=== PATIENT | male | born 1985 | race Caucasian/White ===

== ENCOUNTER 2018-08-11 10:23 | Emergency (ER) | payer OTHER ==
[2018-08-11 10:44] VITALS: BP 131/94
--- NOTE | 2018-08-11 11:12 | UC ---
Shoulder Pain HPI - HPI Summary HPI Summary: HURT R SHOULDER 2 WEEKS AGO WITH A SIDE ARM THROW WITH HIS DOGS BALL. WORSE SINCE LIFTING. - History of Current Complaint Chief Complaint: UCUpperExtremity Stated Complaint: RIGHT SHOULDER PAIN Time Seen by Provider: 08/11/18 10:54 Hx Obtained From: Patient Onset/Duration: Gradual Onset Timing: Constant Pain Intensity: 2 Aggravating Factor(s): Abduction Associated Signs And Symptoms: Negative: Swelling, Numbness/Tingling - Allergies/Home Medications Allergies/Adverse Reactions: Allergies Allergy/AdvReac Type Severity Reaction Status Date / Time No Known Allergies Allergy Verified 08/11/18 10:39 Home Medications: Home Medications Acetaminophen [Acetaminophen Extra Strength] 2,000 mg PO ONCE 08/11/18 [History Confirmed 08/11/18] Naltrexone INJ [Vivitrol INJ] 380 mg IM MONTHLY 08/11/18 [History Confirmed ] PMH/Surg Hx/FS Hx/Imm Hx - Additional Past Medical History Additional PMH: ADDICTION-IN RECOVERY - Surgical History Surgical History: None - Family History Known Family History: Positive: None - Social History Occupation: Employed Full-time Lives: With Family Alcohol Use: None Substance Use Type: None Smoking Status (MU): Heavy Every Day Tobacco Smoker Type: Cigarettes Amount Used/How Often: 1 PPD Length of Time of Smoking/Using Tobacco: Since Age 16 - Immunization History Vaccination Up to Date: Yes Review of Systems Constitutional: Negative Skin: Negative Eyes: Negative ENT: Negative Respiratory: Negative Cardiovascular: Negative Gastrointestinal: Negative Genitourinary: Negative Motor: Negative Neurovascular: Negative Musculoskeletal: Other: - R SHOULDER PAIN Neurological: Negative Psychological: Negative Is Patient Immunocompromised?: No All Other Systems Reviewed And Are Negative: Yes Physical Exam Triage Information Reviewed: Yes Appearance: Well-Appearing Vital Signs: Initial Vital Signs Temp 98.4 F 08/11/18 10:37 Pulse 92 08/11/18 10:37 Resp 19 08/11/18 10:37 BP 131/94 08/11/18 10:37 Pulse Ox 100 08/11/18 10:37 Vital Signs Reviewed: Yes Eyes: Positive: Conjunctiva Clear ENT: Positive: Normal ENT inspection Neck: Positive: Supple, Nontender, No Lymphadenopathy Respiratory Exam: Normal Respiratory: Positive: Lungs clear, Normal breath sounds Cardiovascular: Positive: RRR, No Murmur Abdomen Description: Positive: Nontender, No Organomegaly, Soft Bowel Sounds: Positive: Present Musculoskeletal: Positive: Other: - RUE: NO GROSS DEFORMITY, SWELLING OR DISCOLORATION. NO BONY DEFORMITY OR TENDERNESS BUT TENDER OVER ANTERIOR SHOULDER JOINT. PASSIVE ROM INTACT AND ACTIVE INTACT BUT BOTH WORSEN ANTERIOR SHOULDER PAIN. NEGATIVE ANTERIOR STRESS BUT + DROP ARM. AREA BELOW THE SHOULDER IS NON TENDER AND HAS FULL S/V/M FUNCTION. Neurological: Positive: Alert Psychological: Positive: Age Appropriate Behavior Skin Exam: Normal Skin: Negative: rashes Shoulder Course/Dx - Course Course Of Treatment: + DROP ARM, PAINFUL ABDUCTION, CONCERNING FOR ROTATOR CUFF THUS WILL REFER TO ORTHOPEDICS. NO BONY DEFORMITY, TENDERNESS OR TRAUMA THUS NO XRAY. - Differential Dx/Diagnosis Differential Diagnosis/HQI/PQRI: Fracture (Closed), Rotator Cuff Injury, Sprain , Strain, Tendonitis Provider Diagnoses: ACUTE RIGHT SHOULDER PAIN. POSSIBLE ROTATOR CUFF INJURY Discharge - Sign-Out/Discharge Documenting (check all that apply): Patient Departure All imaging exams completed and their final reports reviewed: No Studies - Discharge Plan Condition: Stable Disposition: HOME Prescriptions: Naproxen [Naprosyn 500 mg tab] 500 mg PO BID 7 Days #14 tablet Patient Education Materials: Rotator Cuff Injury (ED), Shoulder Pain (ED) Referrals: Greg De La Vega MD [Medical Doctor] - - Billing Disposition and Condition Condition: STABLE Disposition: Home
== END 2018-08-11 11:25 | disposition home or self-care (01) ==
LOC: UCCORT 10:23
DX: M25.511 Pain in right shoulder (principal); X50.0XXA Overexertion from strenuous movement or load, initial encounter; Y93.89 Activity, other specified; Y92.9 Unspecified place or not applicable; F17.210 Nicotine dependence, cigarettes, uncomplicated
CPT/HCPCS: 99212; G0463